=== PATIENT | female | born 1945 | race Caucasian/White ===

== ENCOUNTER 2017-04-08 07:30 | Emergency (ER) | payer MEDICARE, BC ==
[~2017-04-08 07:30] MED LIST: ASCO500C PO; ASPI1TAB7 PO; BILB1CAP2 PO; FISH1360 PO; LOSA50TA PO; LUTE20CA PO; PRIL20TA2 PO; TAB-TAB PO; VITA20002 PO
[2017-04-08 07:31] VITALS: BP 113/75; PULSE 101; RESP 18; TEMP 97.8; O2SAT 100
[2017-04-08] MEDS ORDERED: GABA100C4 PO (07:47)
[2017-04-08] MEDS ORDERED: LOSA100T PO (07:47)
[2017-04-08] MEDS ORDERED: OXYMETAZOLINE HCL 0.05% 15 ML NASAL SPRAY NASAL ONE (08:15)
[2017-04-08 08:32] LABS: AUTOMATED NEUTROPHIL # 7.5 TH/MM3 (1.8-7.7); BASOPHIL % 0.4 % (0.0-2.0); EOSINOPHIL # 0.1 TH/MM3 (0-0.4); EOSINOPHIL % 0.8 % (0.0-4.0); HEMATOCRIT 31.7 % (35.0-46.0); HEMOGLOBIN 10.6 GM/DL (11.6-15.3); LYMPH % 13.9 % (9.0-44.0); LYMPHOCYTE # 1.4 TH/MM3 (1.0-4.8); MEAN CELL VOLUME 93.8 FL (80.0-100.0); MEAN CORPUSCULAR HEMOGLOBIN 31.5 PG (27.0-34.0); MEAN CORPUSCULAR HGB CONC 33.6 % (32.0-36.0); MEAN PLATELET VOLUME 8.1 FL (7.0-11.0); MONO % 7.6 % (0.0-8.0); MONOCYTE # 0.7 TH/MM3 (0-0.9); NEUT % 77.3 % (16.0-70.0); PLATELET COUNT 224 TH/MM3 (150-450); RED BLOOD COUNT 3.38 MIL/MM3 (4.00-5.30); RED CELL DISTRIBUTION WIDTH 14.3 % (11.6-17.2); WHITE BLOOD COUNT 9.8 TH/MM3 (4.0-11.0)
[2017-04-08 08:43] LABS: CREATININE 1.78 MG/DL (0.50-1.00)
[2017-04-08 08:46] LABS: PROTHROMBIN TIME - PATIENT 10.4 SEC (9.8-11.6)
--- NOTE | 2017-04-08 11:29 | PD ---
HPI Chief Complaint: ENT Complaint Time Seen by Provider: 07:44 Travel History International Travel<30 days: No Contact w/Intl Traveler<30days: No Traveled to known affect area: No History of Present Illness HPI Patient is a 71 year old female who comes in complaining of a nosebleed. She has had the bleeding for the past few days. Per son, she has been to the ED at [facility] several times and had packing put in her nose yesterday. She says she spit up a blood clot this morning and got nervous so she came in. Her son says they came here to see an ENT. She has an appointment Thursday with Dr. Rubi. She says she has been feeling weak. She denies trauma to her nose. Her son is concerned about the cause of the nosebleed and that she is bleeding too much. He denies dizziness, chest pain or SOB. PFSH Past Medical History Cancer: No Cardiovascular Problems: Yes (CAD, [place]) Diminished Hearing: No Endocrine: No Gastrointestinal Disorders: Yes (ACID INDIGESTION, DIVERTICULOSIS) Genitourinary: No Hepatitis: No Hiatal Hernia: No Hypertension: Yes Immune Disorder: No Medical other: Yes ("FLOATERS" LEFT EYE POST CATARACT SURGERY) Musculoskeletal: Yes (ARTHRITIS) Neurologic: No Psychiatric: No Reproductive: No Respiratory: No Tetanus Vaccination: > 5 Years Influenza Vaccination: Yes Menopausal: Yes : 2 Past Surgical History Cardiac Surgery: No Section: Yes (X 2) Ear Surgery: No Endocrine Surgery: No Eye Surgery: Yes (MARILYN CATARACTS, LASER) Gynecologic Surgery: Yes (2 C SECTION) Hysterectomy: Yes Oral Surgery: No Thoracic Surgery: No Other Surgery: Yes Social History Alcohol Use: No Tobacco Use: No Substance Use: No Allergies-Medications (Allergen,Severity, Reaction): Coded Allergies: Sulfa (Sulfonamide Antibiotics) (Verified Allergy, Severe, Hives, 04/08/17) bacitracin (Verified Allergy, Severe, Hives, 04/08/17) cortisone (Verified Allergy, Severe, itching, 04/08/17) ITCHING,BURNING FEET glucosamine (Verified Allergy, Severe, Hives, 04/08/17) lidocaine (Verified Allergy, Severe, Hives, 04/08/17) miconazole (Verified Allergy, Severe, Hives, 04/08/17) pneumococcal vaccine (Verified Allergy, Severe, Anaphylaxis, 04/08/17) polymyxin B (Verified Allergy, Severe, Hives, 04/08/17) rabeprazole (Verified Allergy, Severe, Hives, 04/08/17) shellfish derived (Verified Allergy, Severe, Anaphylaxis, 04/08/17) transparent dressing (Verified Allergy, Severe, Hives, 04/08/17) betamethasone (Verified Allergy, Unknown, hives, 04/08/17) metronidazole (Verified Adverse Reaction, Severe, Hives, 04/08/17) Reported Meds & Prescriptions Reported Meds & Active Scripts Active Reported Losartan (Losartan Potassium) 100 Mg Tab 100 Mg PO DAILY Gabapentin 100 Mg Cap 100 Mg PO BID Review of Systems Except as stated in HPI: all other systems reviewed are Neg General / Constitutional: No: Fever, Chills HENT: Positive: Nosebleed Cardiovascular: No: Chest Pain or Discomfort, Palpitations Respiratory: No: Shortness of Breath Gastrointestinal: No: Nausea, Vomiting Genitourinary: No: Dysuria Musculoskeletal: No: Myalgias Skin: No Rash, No Change in Pigmentation Neurologic: No: Dizziness Physical Exam Narrative GENERAL: Awake and alert, in no acute distress. SKIN: Focused skin assessment warm/dry. HEAD: Atraumatic. Normocephalic. EYES: Pupils equal and round. No scleral icterus. No injection or drainage. ENT: No nasal bleeding or discharge. Mucous membranes pink and moist. NECK: Trachea midline. No JVD. CARDIOVASCULAR: Regular rate and rhythm. No murmur appreciated. RESPIRATORY: No accessory muscle use. Clear to auscultation. Breath sounds equal bilaterally. MUSCULOSKELETAL: No obvious deformities. No clubbing. No cyanosis. No edema. NEUROLOGICAL: Awake and alert. No obvious cranial nerve deficits. Motor grossly within normal limits. Normal speech. PSYCHIATRIC: Appropriate mood and affect; insight and judgment normal. Data Data Last Documented VS Vital Signs Date Time Temp Pulse Resp B/P (MAP) Pulse Ox O2 Delivery O2 Flow Rate FiO2 04/08/17 07:47 96 17 04/08/17 07:31 97.8 113/75 (88) 100 Orders Orders Complete Blood Count With Diff (04/08/17 08:05) Basic Metabolic Panel (Bmp) (04/08/17 08:05) Act Partial Throm Time (Ptt) (04/08/17 08:05) Prothrombin Time / Inr (Pt) (04/08/17 08:05) Oxymetazoline 0.05% Gilles Boise (Afrin 0.0 (04/08/17 08:15) Labs Laboratory Tests Test 04/08/17 08:00 White Blood Count 9.8 TH/MM3 Red Blood Count 3.38 MIL/MM3 Hemoglobin 10.6 GM/DL Hematocrit 31.7 % Mean Corpuscular Volume 93.8 FL Mean Corpuscular Hemoglobin 31.5 PG Mean Corpuscular Hemoglobin Concent 33.6 % Red Cell Distribution Width 14.3 % Platelet Count 224 TH/MM3 Mean Platelet Volume 8.1 FL Neutrophils (%) (Auto) 77.3 % Lymphocytes (%) (Auto) 13.9 % Monocytes (%) (Auto) 7.6 % Eosinophils (%) (Auto) 0.8 % Basophils (%) (Auto) 0.4 % Neutrophils # (Auto) 7.5 TH/MM3 Lymphocytes # (Auto) 1.4 TH/MM3 Monocytes # (Auto) 0.7 TH/MM3 Eosinophils # (Auto) 0.1 TH/MM3 Basophils # (Auto) 0.0 TH/MM3 CBC Comment DIFF FINAL Differential Comment Prothrombin Time 10.4 SEC Prothromb Time International Ratio 1.0 RATIO Activated Partial Thromboplast Time 21.0 SEC Blood Urea Nitrogen 46 MG/DL Creatinine 1.78 MG/DL Random Glucose 118 MG/DL Calcium Level 9.0 MG/DL Sodium Level 138 MEQ/L Potassium Level 4.6 MEQ/L Chloride Level 108 MEQ/L Carbon Dioxide Level 22.0 MEQ/L Anion Gap 8 MEQ/L Estimat Glomerular Filtration Rate 28 ML/MIN [facility] Medical Decision Making Medical Screen Exam Complete: Yes Emergency Medical Condition: Yes Differential Diagnosis nosebleed vs coagulopathy vs anemia Narrative Course Patient is a 71-year-old female comes in complaining of a nosebleed. On initial exam, one packing was removed there was no active bleeding. She was given aspirin. Blood work was sent shows hemoglobin of 10.6, normal coags. While she was here, she did start to spit up some blood again that was dripping down the back of her throat. Her nose was repacked with posterior packing. I spoke with Dr. Martinez of ENT, who agrees she should go home with packing and follow-up in the office as scheduled on Thursday. She is given normal saline to keep the rapid Rhino sweat per Dr. Dunn instructions. Advised to return anytime for any worsening symptoms. Diagnosis Primary Impression: Nosebleed Patient Instructions: General Instructions, Nosebleed (ED) Additional Instructions: Follow-up with ENT as scheduled. Keep the packing moist with the saline until you see the ENT. Take the antibiotic that you have at home. Return anytime for any worsening symptoms. Disposition: 01 DISCHARGE HOME Condition: Stable Geri Huber MD Apr 08, 2017 11:29
[2017-04-08 11:45] VITALS: BP 102/73; TEMP 97.8
== END 2017-04-08 11:45 | disposition home or self-care (01) ==
LOC: NEPE 07:30
DX: R04.0 Epistaxis (principal); I25.10 Atherosclerotic heart disease of native coronary artery without angina pectoris; I10 Essential (primary) hypertension; M19.90 Unspecified osteoarthritis, unspecified site
CPT/HCPCS: 30905; 80048; 85025; 85610; 85730